=== PATIENT | male | born 1995 | race Caucasian/White ===

== ENCOUNTER 2024-09-24 10:43 | Emergency (ER) | payer SELFPAY ==
[~2024-09-24] VITALS: Ht 180.3 cm; Wt 90.7 kg
[2024-09-24 10:56] VITALS: BP_SYST 139; BP_DIAS 69; BP_DIAS 99; PULSE 118; RESP 18; TEMP 99.1; O2SAT 96
== END 2024-09-24 11:10 | disposition home or self-care (01) ==
LOC: ER 10:43
DX: J06.9 Acute upper respiratory infection, unspecified (principal); B97.89 Other viral agents as the cause of diseases classified elsewhere
CPT/HCPCS: 99281